=== PATIENT | female | born 1950 | race Caucasian/White ===

== ENCOUNTER 2020-10-03 06:56 | Day surgery (SDC) | payer MEDICARE, OTHER ==
[2020-10-03] MEDS ORDERED: Lactated Ringers 1,000 ML IV SCH (07:00)
[2020-10-03] MEDS ORDERED: Propofol 200 MG/20 ML SDV ONE ×3 (07:52→08:38)
[2020-10-03 09:05] VITALS: BP 115/82; PULSE 64
--- NOTE | 2020-10-03 12:35 | OR ---
PREOPERATIVE DIAGNOSES: 1. Positive family history of colon polyps in 4 or 5 different siblings. 2. Two first cousins with colon cancer. 3. The patient's last colonoscopy was about 5 years ago. POSTOPERATIVE DIAGNOSES: 1. Two polyps removed: a. A 2 mm cecal polyp removed using cold forceps. b. A 6 mm polyp at 75 cm, removed with hot snare. 2. Moderate left-sided diverticulosis. 3. Moderate hemorrhoids. 4. Normal distal ileum. PROCEDURE: Colonoscopy with polypectomy x2 (one using cold forceps, one using hot snare). ANESTHESIA: Monitored anesthesia care. BOWEL PREP: Good. DESCRIPTION OF PROCEDURE: Maribell is a 70-year-old female who was brought to the endoscopy suite after discussing risks and benefits of the procedure. Informed consent was obtained for conscious sedation and colonoscopy with or without biopsy and/or polypectomy. We also discussed possibility of missed lesions. Pre-procedure exam was unremarkable. IV, oxygen, and monitors were placed. The patient was placed in the left lateral decubitus position. Sedation was administered and a digital rectal exam was performed and unremarkable except for some moderate hemorrhoids. Colonoscope was passed into the rectum and slowly advanced all the way to the cecum. Cecum was viewed and photographed. There was a 2 mm cecal polyp, removed using cold forceps. Ileocecal valve was intubated, and distal ileum was normal in appearance. The colonoscope was slowly withdrawn and the mucosa was closed observed in a direct circumferential manner. The ascending colon revealed a 6 mm polyp at 75 cm near the hepatic flexure which was removed using hot snare. The transverse colon was unremarkable. The descending colon and sigmoid colon revealed some moderate left-sided diverticulosis. Retroflexion was performed. Rectal mucosa was remarkable for some moderate hemorrhoids. Scope was removed. The patient tolerated the procedure well. The patient was monitored until that baseline status. Discharge instructions were reviewed and the patient was discharged in good condition. COMPLICATIONS: None. TOTAL TIME: 29 minutes. ESTIMATED BLOOD LOSS: Less than 1 mL. RECOMMENDATIONS/FOLLOW-UP: Will await results of path report to determine ideal followup interval. We will have the patient hold her aspirin for about 3 days to limit any chance of bleeding from the polypectomy sites. I would like to kindly thank Dr. Christensen for this referral. DMB: 10/03/2020 11:25:42 MODL: 10/03/2020 11:52:50 /[id number]
== END 2020-10-03 09:45 | disposition home or self-care (01) ==
LOC: VM.SDS 06:56
PROVIDERS: ATTEND Family Medicine
DX: Z12.11 Encounter for screening for malignant neoplasm of colon (principal); D12.0 Benign neoplasm of cecum; K57.30 Diverticulosis of large intestine without perforation or abscess without bleeding; K64.9 Unspecified hemorrhoids; I10 Essential (primary) hypertension; E78.5 Hyperlipidemia, unspecified; F41.9 Anxiety disorder, unspecified; R73.03 Prediabetes; M79.7 Fibromyalgia; E78.2 Mixed hyperlipidemia; N32.81 Overactive bladder; L40.50 Arthropathic psoriasis, unspecified; Z01.812 Encounter for preprocedural laboratory examination; Z20.828 Contact with and (suspected) exposure to other viral communicable diseases; Z88.8 Allergy status to other drugs, medicaments and biological substances; Z80.0 Family history of malignant neoplasm of digestive organs; Z98.890 Other specified postprocedural states
CPT/HCPCS: 00812; 45380; 45385; J2704; J7120; U0002

== ENCOUNTER 2023-01-09 17:36 | Emergency (ER) | payer MEDICARE, OTHER ==
[2023-01-09 18:38] VITALS: BP 142/94; PULSE 104
[2023-01-09 19:44] LABS: RESPIRATORY SYNCYTIAL VIR NAA NEGATIVE (NEGATIVE)
[2023-01-09 19:45] LABS: CORONAVIRUS COVID-19 NAA POSITIVE (NEGATIVE)
[2023-01-09 20:55] LABS: ANION GAP 11.7 mmol/L (5-15)
[2023-01-09] MEDS ORDERED: Nirmatrelvir/Ritonavir 300 MG/100 MG Dose Pack PO SCH (21:00)
== END 2023-01-09 21:06 | disposition home or self-care (01) ==
LOC: VM.ED 17:36
DX: U07.1 COVID-19 (principal); I48.91 Unspecified atrial fibrillation; E78.00 Pure hypercholesterolemia, unspecified; I10 Essential (primary) hypertension; Z88.5 Allergy status to narcotic agent; Z79.899 Other long term (current) drug therapy; Z86.16 Personal history of COVID-19
CPT/HCPCS: 0241U; 36415; 80053; 99283; A9270

== ENCOUNTER 2025-04-24 17:23 | Emergency (ER) | payer MEDICARE, OTHER ==
[2025-04-24] MEDS: Acetaminophen 500 MG Tab PO ONE (18:16)
[2025-04-24] MEDS: Ibuprofen 200 MG Tab PO PRN (18:16)
[2025-04-24 19:01] VITALS: BP 182/100; PULSE 95
== END 2025-04-24 18:35 | disposition home or self-care (01) ==
LOC: VM.ED 17:23
DX: S63.502A Unspecified sprain of left wrist, initial encounter (principal); I48.91 Unspecified atrial fibrillation; E78.00 Pure hypercholesterolemia, unspecified; I10 Essential (primary) hypertension; Z90.49 Acquired absence of other specified parts of digestive tract; Z88.5 Allergy status to narcotic agent; Z79.899 Other long term (current) drug therapy; X50.1XXA Overexertion from prolonged static or awkward postures, initial encounter; Y93.89 Activity, other specified
CPT/HCPCS: 29125; 73110-LT; 99283; 99283-25; A9270-GY